=== PATIENT | male | born 1965 | race Caucasian/White ===

== ENCOUNTER 2017-08-03 12:45 | Emergency (ER) | payer MEDICAID ==
[2017-08-03] MEDS ORDERED: TDAP ADULT 0.5 ML INJ (BOOSTRIX) IM ONE (13:23)
--- NOTE | 2017-08-03 14:07 | EDPHY ---
H & P Time Seen by Provider: 08/03/17 13:07 HPI/ROS: CHIEF COMPLAINT: Left hand injury HISTORY OF PRESENT ILLNESS: 51-year-old male presents to the emergency department by private vehicle with his sons with injury to his left hand. The patient was at work and was using a hot box checker and accidentally cut the dorsal aspect of his left hand. The incident happened just prior to arrival. He complains of isolated pain to the left hand. He denies any other injury or trauma. He is unsure of his last tetanus shot. ROS: Denies numbness or tingling in his fingers, retained foreign body, pain in his left wrist. Past Medical/Surgical History: Type 2 diabetic, hypertension Social History: and lives in [place] Smoking Status: Never smoked Physical Exam: Examination left hand reveals a small 1.5 cm laceration to the dorsal aspect of his left hand overlying 2nd metacarpal. The patient has some slight weakness with extension of his left index finger. Normal sensation to light touch with normal 2 point discrimination. Patient appears to have cut through the tendon sheath but I do not appreciate an otherwise obvious tendon laceration. Full flexion of his fingers. Full extension of all of his fingers except for the 2nd finger as discussed above. Strong radial pulse at the left wrist. Constitutional: Initial Vital Signs Temperature (C) 36.9 C 08/03/17 12:47 Heart Rate 73 08/03/17 12:47 Respiratory Rate 18 08/03/17 12:47 Blood Pressure 204/120 H 08/03/17 12:47 O2 Sat (%) 96 08/03/17 12:47 O2 Delivery Mode Room Air Allergies/Adverse Reactions: No Known Allergies Allergy (Unverified 08/03/17 12:47) Home Medications: Medication Instructions Recorded Cephalexin [Keflex] 500 mg PO QID #28 cap 08/03/17 Losartan Potassium 08/03/17 Metformin HCl 08/03/17 Xanax 08/03/17 MDM/Departure - MDM Procedures: Laceration repair. Verbal consent was obtained from the patient. The 1.5 cm laceration on the dorsal aspect left hand was anesthetized using 1% lidocaine with epinephrine. The wound was irrigated with saline, draped and explored to its base with a gloved finger. Laceration noted to the tendon sheath without obvious tendon laceration visualized. The wound was repaired with 5 0 Ethilon, 3 sutures. The wound repair was simple. The procedure was performed by myself. The wound was dressed and the patient was placed in volar Ortho Glass splint and examined post application in good placement with normal [employer]. Medications Given: Discontinued Medications Diphtheria/Tetanus/Acell Pertussis (Boostrix) 0.5 ml IM .ONCE ONE Stop: 08/03/17 13:24 Last Admin: 08/03/17 13:34 Dose: 0.5 ml ED Course/Re-evaluation: 51-year-old male presents with left hand laceration. I was concerned about possible tendon laceration. I did appreciate a tendon sheath laceration, however unable to vision tendon laceration on exam. The patient does have some slight decreased extension involving the left 2nd finger. The wound was closed , see procedure note. He was placed in a splint. He will be started on Keflex and was given orthopedic hand surgical referral. The patient was also found to have very elevated blood pressure. He does have a history of hypertension. I encouraged to have close follow-up with primary care provider as soon as possible to discuss this. - Depart Disposition: Home, Routine, Self-Care Clinical Impression: Laceration of left hand involving tendon Qualifiers: Encounter type: initial encounter Qualified Code(s): S61.412A - Laceration without foreign body of left hand, initial encounter Condition: Good Instructions: Care For Your Stitches (ED), Laceration (ED), Acute Wounds (ED) Additional Instructions: Keflex as directed for one week to prevent infection. It appears that you have a partial tendon laceration the dorsal aspect of your left hand. You will need follow up with orthopedic hand surgeon. Keep splint on and keep it dry. Follow up with hand surgeon to recheck on Saturday. Your blood pressure was very high in the emergency department today. You should follow up with your primary care provider on Saturday to recheck. Prescriptions: Cephalexin [Keflex] 500 mg PO QID #28 cap Referrals: Pedro Blanco MD [Medical Doctor] - 2-3 days without fail (Orthopedic hand surgeon on-call)
[2017-08-03 14:55] VITALS: BP 181/120
== END 2017-08-03 14:54 | disposition home or self-care (01) ==
PROC: 0HQGXZZ Repair Left Hand Skin, External Approach (ICD-10-PCS; principal; 2017-08-03)
DX: S61.412A Laceration without foreign body of left hand, initial encounter (principal); I10 Essential (primary) hypertension; E11.9 Type 2 diabetes mellitus without complications; Z23 Encounter for immunization; Z79.84 Long term (current) use of oral hypoglycemic drugs; W27.8XXA Contact with other nonpowered hand tool, initial encounter; Y92.89 Other specified places as the place of occurrence of the external cause; Y99.8 Other external cause status; Y93.89 Activity, other specified